=== PATIENT | female | born 1995 | race Two or more races ===

== ENCOUNTER 2017-12-15 15:43 | Emergency (ER) | payer MEDICAID, OTHER ==
[~2017-12-15] VITALS: Ht 162.6 cm; Wt 77.4 kg
[2017-12-15 16:27] LABS: BASOPHILS # (AUTO) 0.04 x10^3/uL (0-0.1); BASOPHILS % (AUTO) 0 % (0-1); EOSINOPHILS # (AUTO) 0.11 x10^3/uL (0-0.4); EOSINOPHILS % (AUTO) 1 % (1-7); LYMPHOCYTES # (AUTO) 2.31 x10^3/uL (1-3.4); LYMPHOCYTES % (AUTO) 24 % (22-44); MD NO; MEAN CORPUSCULAR HEMOGLOBIN 29.1 pg (27.0-34.8); MEAN CORPUSCULAR HGB CONC 33.1 g/dL (32.4-35.8); MEAN CORPUSCULAR VOLUME 87.9 fL (80-100); MEAN PLATELET VOLUME 8.7 fL (7.4-10.4); MONOCYTES # (AUTO) 0.94 x10^3/uL (0.2-0.8); MONOCYTES % (AUTO) 10 % (2-9); NEUTROPHILS # (AUTO) 6.23 x10^3/uL (1.8-6.8); NEUTROPHILS % (AUTO) 65 % (42-75); PLATELET COUNT 292 x10^3/uL (130-400); RED BLOOD COUNT 4.85 x10^6/uL (3.82-5.3); RED CELL DISTRIBUTION WIDTH 12.8 % (9.6-15.2)
[2017-12-15 16:36] LABS: ALBUMIN 3.9 g/dL (3.4-5.0); ANION GAP 6 mmol/L (5-15); CALCIUM 8.8 mg/dL (8.5-10.1); CHLORIDE 105 mmol/L (98-107); CREATININE 0.78 mg/dL (0.55-1.02); T4 (THYROXINE) 10.1 mcg/dL (4.8-13.9)
[2017-12-15 16:40] LABS: MICROSCOPIC AUTO
[2017-12-15 16:41] LABS: CULTURE INDICATED? YES
[2017-12-15] MEDS ORDERED: KETOROLAC 30 MG/1 ML ONE (17:16)
[2017-12-15] MEDS ORDERED: METOCLOPRAMIDE 5 MG/ML, 2ML ONE (17:16)
[2017-12-15] MEDS ORDERED: DIPHENHYDRAMINE 50 MG/ML, 1ML ONE (17:16)
[2017-12-15] MEDS ORDERED: SODIUM CHLORIDE 0.9% 1,000ML IVBOLUS ONE (17:30)
[2017-12-15] MEDS ORDERED: KETOROLAC 30 MG/1 ML IVPush ONE (17:30)
[2017-12-15] MEDS ORDERED: SODIUM CHLORIDE FLUSH 10ML SYR IVF ONE (17:30)
[2017-12-15] MEDS ORDERED: METOCLOPRAMIDE 5 MG/ML, 2ML IVPush ONE (17:30)
[2017-12-15] MEDS ORDERED: DIPHENHYDRAMINE 50 MG/ML, 1ML IVPush ONE (17:30)
[2017-12-15 19:28] VITALS: BP 108/68
== END 2017-12-15 19:30 | disposition home or self-care (01) ==
LOC: ED 19:16
DX: N30.90 Cystitis, unspecified without hematuria (principal); R51 Headache; E03.9 Hypothyroidism, unspecified
CPT/HCPCS: 36415; 80048; 81001; 82040; 84436; 84443; 84703; 85025; 87086; 93005; 96374; 96375; 99285; J1200; J1885; J2765; J7030; 96361

== ENCOUNTER 2021-01-15 22:11 | Emergency (ER) | payer BC, OTHER ==
[~2021-01-15] VITALS: Ht 162.6 cm; Wt 89.4 kg
[2021-01-15 22:18] VITALS: BP 132/85
== END 2021-01-16 00:12 | disposition home or self-care (01) ==
LOC: ED 22:41
DX: S29.012A Strain of muscle and tendon of back wall of thorax, initial encounter (principal); M79.641 Pain in right hand; M25.571 Pain in right ankle and joints of right foot; R51.9 Headache, unspecified; M54.2 Cervicalgia; V49.49XA Driver injured in collision with other motor vehicles in traffic accident, initial encounter; Y93.89 Activity, other specified; Y92.410 Unspecified street and highway as the place of occurrence of the external cause; Y99.8 Other external cause status
CPT/HCPCS: 72020; 72050; 99284